=== PATIENT | male | born 1940 | race Caucasian/White ===

== ENCOUNTER 2019-04-11 00:16 | Emergency (ER) | payer MEDICARE, OTHER ==
[2019-04-11] MEDS ORDERED: Take Home: Acetaminophen/HYDROcodone 325-5 MG, 5 Tab Pack PO ONE (00:38)
--- NOTE | 2019-04-11 00:44 | EDM.PDOC ---
ED HPI GENERAL MEDICAL PROBLEM - General Chief Complaint: Lower Extremity Injury/Pain Stated Complaint: right knee pain Time Seen by Provider: 04/11/19 00:31 Source of Information: Reports: Patient History Limitations: Reports: No Limitations - History of Present Illness INITIAL COMMENTS - FREE TEXT/NARRATIVE: Patient with ongoing right knee pain times years worse in the last 3 weeks states Tylenol codeine that he has been taking is not helping his primary care provider has gotten him appointment with Ortho for possible knee replacement. States the pain is a 10 out of 10 but is it been this way for years just worse last couple weeks. He denies any fever redness swelling to the joint no trauma or injury no trouble walking no other complaints at this time Duration: Day(s): Location: Reports: Lower Extremity, Right Quality: Reports: Dull, Pressure, Same as Previous Episode, Throbbing Severity: Severe Improves with: Reports: Other Worsens with: Reports: Movement Treatments [employer]: Reports: Other (see below) (Took Tylenol 3 about 8:00 did not work) Right Knee Pain Score (Numeric/FACES): 5 - Related Data Allergies Allergy/AdvReac Type Severity Reaction Status Date / Time No Known Allergies Allergy Verified 04/11/19 00:16 Home Meds: Home Meds Acetaminophen with Codeine [Acetaminophen-Cod #3] 1 each PO Q6H PRN 04/11/19 [ History] Dextroamphetamine/Amphetamine [Dextroamp-Amphetamine 5 mg Tab] 1 tab PO BID [History] Donepezil HCl 10 mg PO DAILY 04/11/19 [History] FLUoxetine HCl [Fluoxetine HCl] 40 mg PO DAILY 04/11/19 [History] atorvaSTATin [Lipitor] 10 mg PO DAILY 04/11/19 [History] traZODone HCl [Trazodone HCl] 150 mg PO BEDTIME 04/11/19 [History] Past Medical History Cardiovascular History: Reports: High Cholesterol Musculoskeletal History: Reports: Arthritis Oncologic (Cancer) History: Reports: Other (See Below) Other Oncologic History: rectal Social & Family History - Tobacco Use Smoking Status *Q: Former Smoker Used Tobacco, but Quit: Yes Month/Year Tobacco Last Used: 1991 Review of Systems - Review of Systems Review Of Systems: See Below Constitutional: Reports: No Symptoms Eyes: Reports: No Symptoms Ears: Reports: No Symptoms Nose: Reports: No Symptoms Mouth/Throat: Reports: No Symptoms Respiratory: Reports: No Symptoms Cardiovascular: Reports: No Symptoms GI/Abdominal: Reports: No Symptoms Genitourinary: Reports: No Symptoms Musculoskeletal: Reports: Joint Pain. Denies: Back Pain, Leg Pain, Foot Pain, Joint Swelling, Muscle Stiffness Skin: Reports: No Symptoms Neurological: Reports: No Symptoms Psychiatric: Reports: No Symptoms ED EXAM, GENERAL - Physical Exam Exam: See Below Exam Limited By: No Limitations General Appearance: Alert, WD/WN, No Apparent Distress Throat/Mouth: Normal Inspection, Normal Lips, Normal Teeth, Normal Gums, Normal Oropharynx, Normal Voice, No Airway Compromise Neck: Full Range of Motion Respiratory/Chest: No Respiratory Distress Cardiovascular: Normal Peripheral Pulses Back Exam: Full Range of Motion Extremities: Normal Inspection, Normal Range of Motion, Non-Tender, No Pedal Edema, Normal Capillary Refill, Other (Exam to the right knee there is no edema erythema calor no ballottement or effusion full range of motion neurovascularly intact 5 of 5 strength bilateral there is no joint line tenderness normal varus valgus normal drawer's there is no signs or symptoms of secondary joint inflammation or infection) Neurological: Alert, Oriented, CN II-XII Intact, Normal Cognition, Normal Gait, Normal Reflexes, No Motor/Sensory Deficits Psychiatric: Normal Affect, Normal Mood Skin Exam: Warm, Dry, Intact, Normal Color, No Rash Lymphatic: No Adenopathy Course - Vital Signs Text/Narrative:: Patient was given Lortab 1 every 4-6 hours take-home pack #5 and told to follow- up with his primary care provider Last Recorded V/S: Last Vital Signs Temp 35.9 C L 04/11/19 00:20 Pulse 81 04/11/19 00:20 Resp 18 04/11/19 00:20 BP 152/95 H 04/11/19 00:20 Pulse Ox 97 04/11/19 00:20 - Orders/Labs/Meds Orders: Active Orders 24 hr Category Date Time Status Acetaminophen/HYDROcodone [Take Home: Acetam/HYDROcodon Med 04/11/19 00:38 Once 325-5 MG, 5 Pack] 1 packet PO ONETIME ONE Departure - Departure Time of Disposition: 00:45 Disposition: Home, Self-Care 01 Condition: Good Clinical Impression: Right knee pain - Discharge Information *PRESCRIPTION DRUG MONITORING PROGRAM REVIEWED*: No *COPY OF PRESCRIPTION DRUG MONITORING REPORT IN PATIENT [place]: No Sepsis Event Note - Evaluation Sepsis Screening Result: No Definite Risk - Focused Exam Vital Signs: Vital Signs Temp Pulse Resp BP Pulse Ox 04/11/19 00:20 35.9 C L 81 18 152/95 H 97 Date Exam was Performed: 04/11/19 Time Exam was Performed: 00:39 - Problem List & Annotations (1) Right knee pain SNOMED Code(s): 26691965 Code(s): M25.561 - PAIN IN RIGHT KNEE Status: Acute Current Visit: Yes - My Orders Last 24 Hours: My Active Orders 04/11/19 00:38 Acetaminophen/HYDROcodone [Take Home: Acetam/HYDROcodon 325-5 MG, 5 Pack] 1 packet PO ONETIME ONE - Assessment/Plan Last 24 Hours: My Active Orders 04/11/19 00:38 Acetaminophen/HYDROcodone [Take Home: Acetam/HYDROcodon 325-5 MG, 5 Pack] 1 packet PO ONETIME ONE
== END 2019-04-11 00:51 | disposition home or self-care (01) ==
LOC: VM.ED 00:16
DX: M25.561 Pain in right knee (principal); E78.00 Pure hypercholesterolemia, unspecified; Z87.891 Personal history of nicotine dependence; Z79.899 Other long term (current) drug therapy
CPT/HCPCS: 99283; A9270

== ENCOUNTER 2020-06-06 09:22 | Day surgery (SDC) | payer MEDICARE, OTHER ==
[~2020-06-06 09:22] MED LIST: 50% Dextrose in Water 50 ML Syringe IV PRN; Citric Acid/Sodium Citrate Solution 30 ML Cup PO ONE; Lactated Ringers 1,000 ML IV SCH
[2020-06-06] MEDS ORDERED: Propofol 200 MG/20 ML SDV ONE (10:07)
[2020-06-06] MEDS ORDERED: fentaNYL 100 MCG/2 ML SDV ONE (10:07)
[2020-06-06] MEDS ORDERED: Piperacillin/Tazobactam 4.5 GM in Sodium Chloride 0.9% 100 ML IV ONE (11:40)
[2020-06-06] MEDS ORDERED: Lactated Ringers 1,000 ML IV SCH (11:45)
--- NOTE | 2020-06-06 12:23 | OR ---
PREOPERATIVE DIAGNOSIS: History of colon cancer 20 years ago, status post endoscopic resection. POSTOPERATIVE DIAGNOSES: 1. History of colon cancer 20 years ago, status post endoscopic resection. 2. Rectosigmoid mucosal tear that was not clearly full-thickness. ANESTHESIA: MAC anesthesia. COMPLICATIONS: There was a mucosal tear made in the rectosigmoid colon. This appeared to be partial thickness, although we could not prove that. There was no intraabdominal structures visible through the tear, but this is unclear. A clip was applied to reapproximate the mucosa, which reapproximated most of the defect. INDICATION FOR PROCEDURE: Mr. Vaughn is a 80-year-old male who has a reported history of colon cancer that was endoscopically resected 20 years ago. He now gets colonoscopies about every 5 years. He has not had any issues and has no family history of colon cancer. DETAILS OF PROCEDURE: Informed consent was obtained. The patient was brought to the procedure room and placed in left lateral decubitus position. MAC anesthesia was induced by Anesthesia colleagues. Colonoscope was introduced into the sigmoid. The sigmoid seemed somewhat tortuous and they were to reduce loop without feeling like there was significant amount of resistance. However, as we were pulling back, we noted that there was a small tear in the mucosa estimated to be about 1 cm. I could not tell if this was full-thickness, although I could not see any intraabdominal structures through this defect. A clip was applied with near-complete, although not 100% reapproximation of the mucosa. Due to the position of the already placed clip, I was unable to get a second clip in good position. For this reason, we then desufflated the rectum and aborted the procedure. The patient will be admitted at least overnight for monitoring if he does not have an acute abdomen in the recovery area. RKM: 06/06/2020 11:30:07 MODL: 06/06/2020 12:05:03 /[id number]
[2020-06-06] MEDS ORDERED: Morphine 2 MG/ML SYRINGE ONE (15:46)
[2020-06-06] MEDS ORDERED: Morphine 2 MG/ML SYRINGE IVPUSH ONE (15:50)
[2020-06-06] MEDS ORDERED: Ondansetron 4 MG/2 ML SDV ONE ×2 (16:18→16:21)
[2020-06-06] MEDS ORDERED: Piperacillin/Tazobactam 3.375 GM in Sodium Chloride 0.9% 100 ML IV SCH (20:00)
== END 2020-06-06 16:30 | disposition short-term general hospital (02) ==
LOC: VM.SDS 09:22
PROVIDERS: ATTEND Student in an Organized Health Care Education/Training Program
DX: Z12.11 Encounter for screening for malignant neoplasm of colon (principal); K63.89 Other specified diseases of intestine; E78.00 Pure hypercholesterolemia, unspecified; F33.40 Major depressive disorder, recurrent, in remission, unspecified; F51.05 Insomnia due to other mental disorder; R53.82 Chronic fatigue, unspecified; E78.5 Hyperlipidemia, unspecified; Z98.890 Other specified postprocedural states; Z90.49 Acquired absence of other specified parts of digestive tract; Z85.038 Personal history of other malignant neoplasm of large intestine; Z79.899 Other long term (current) drug therapy; Z87.891 Personal history of nicotine dependence
CPT/HCPCS: 00811; J2270; J2405; J2543; J2704; J3010; J7120